=== PATIENT | female | born 1985 | race Two or more races ===

== ENCOUNTER 2023-06-05 10:10 | Emergency (ER) | payer OTHER ==
[~2023-06-05] VITALS: Ht 165.1 cm; Wt 64.9 kg
[2023-06-05 11:49] LABS: BASOPHILS % (AUTO) 0.2 % (0.0-2.0); EOSINOPHILS % (AUTO) 0.3 % (0.0-6.0); HEMATOCRIT 36 % (33-45); HEMOGLOBIN 11.9 g/dL (11.5-14.8); LYMPHOCYTES # (AUTO) 1.5 K/uL (0.8-4.8); LYMPHOCYTES % (AUTO) 13.9 % (20.0-44.0); MEAN CORPUSCULAR HEMOGLOBIN 28 PG (26.0-33.0); MEAN CORPUSCULAR HGB CONC 33 g/dl (31.0-36.0); MEAN CORPUSCULAR VOLUME 85 fL (82-100); MONOCYTES # (AUTO) 0.6 K/uL (0.1-1.30); MONOCYTES % (AUTO) 5.1 % (2.0-12.0); NEUTROPHILS # (AUTO) 8.9 K/uL (1.8-8.9); NEUTROPHILS % (AUTO) 80.5 % (43.0-81.0); PLATELET COUNT (AUTO) 292 K/uL (150-450); RED CELL DISTRIBUTION WIDTH 15.6 % (11.5-15.0); WHITE BLOOD COUNT (AUTO) 11.1 K/uL (4.3-11.0)
[2023-06-05 11:57] LABS: CALCIUM, SERUM 8.9 mg/dL (8.5-10.1); CREATININE 0.8 mg/dL (0.6-1.3); POTASSIUM 4.3 mmol/L (3.5-5.1)
[2023-06-05 12:03] LABS: ALBUMIN 3.7 g/dL (3.4-5.0); BILIRUBIN,DIRECT 0.1 mg/dL (0.0-0.2); BILIRUBIN,TOTAL 0.3 mg/dL (0.2-1.0); TOTAL PROTEIN, SERUM 7.2 g/dL (6.4-8.2)
[2023-06-05 12:15] LABS: APPEARANCE,URINE CLEAR (CLEAR); BILIRUBIN,URINE NEGATIVE (NEGATIVE); BLOOD, URINE TRACE-INTA Ery/uL (NEGATIVE); COLOR,URINE YELLOW (YELLOW); KETONES,URINE NEGATIVE (NEGATIVE); LEUKOCYTE ESTERASE ,URINE 1+ (NEGATIVE); NITRITE, URINE NEGATIVE (NEGATIVE); PH,URINE 6.5 (5.0-8.0); PROTEIN,URINE NEGATIVE (NEGATIVE); UGLUCOSE NEGATIVE (NEGATIVE); UROBILINOGEN,URINE 0.2 EU/dL (0.2)
[2023-06-05] MEDS ORDERED: NITR100C PO (13:24)
[2023-06-05 14:20] VITALS: BP 121/61; TEMP 98.2; O2SAT 100
[2023-06-05 14:25] LABS: ADD URINE CULTURE YES; BACTERIA,URINE Many /HPF (None Seen); RBC,URINE 0-2 /HPF (0-2); SQUAMOUS EPITHELIAL CELL,UR Many /HPF (None Seen)
[2023-06-05 14:31] LABS: PREGNANCY TEST URINE QUAL NEGATIVE (NEGATIVE)
== END 2023-06-05 14:20 | disposition home or self-care (01) ==
LOC: ER 10:29
DX: K80.20 Calculus of gallbladder without cholecystitis without obstruction (principal); N39.0 Urinary tract infection, site not specified; R10.30 Lower abdominal pain, unspecified
CPT/HCPCS: 36415; 80048-TC; 80076-TC; 81001; 83690-TC; 84703-TC; 85025-TC; 87086-TC

== ENCOUNTER 2024-02-17 14:14 | Emergency (ER) | payer OTHER ==
[~2024-02-17] VITALS: Ht 167.6 cm; Wt 56.7 kg
[~2024-02-17 14:14] MED LIST: NITR100C PO
[2024-02-17] MEDS ORDERED: predniSONE 20 MG TABLET ONE (14:34)
[2024-02-17] MEDS ORDERED: ALBUTEROL FS 2.5 MG/3 ML VIAL.NEB ONE (14:42)
[2024-02-17] MEDS ORDERED: IPRATROPIUM NEB FS 0.5 MG/2.5 ML AMPUL.NEB ONE (14:42)
[2024-02-17 14:46] VITALS: O2SAT 96
[2024-02-17] MEDS: ALBUTEROL FS 2.5 MG/3 ML VIAL.NEB NEB ONE (14:46)
[2024-02-17] MEDS: IPRATROPIUM NEB FS 0.5 MG/2.5 ML AMPUL.NEB NEB ONE (14:46)
[2024-02-17] MEDS: predniSONE 20 MG TABLET PO ONE (14:56)
[2024-02-17 15:04] VITALS: O2SAT 100
[2024-02-17] MEDS ORDERED: GUAI1TBM19 PO (16:02)
[2024-02-17] MEDS ORDERED: FLUT100D INH (16:02)
[2024-02-17] MEDS ORDERED: PRED50TA PO (16:02)
[2024-02-17] MEDS ORDERED: ALBU18HF2 INH (16:02)
[2024-02-17 16:05] VITALS: BP 112/67; TEMP 98.2; O2SAT 100
== END 2024-02-17 16:05 | disposition home or self-care (01) ==
LOC: ER 14:16
DX: J45.909 Unspecified asthma, uncomplicated (principal); J06.9 Acute upper respiratory infection, unspecified; Z79.51 Long term (current) use of inhaled steroids; Z79.899 Other long term (current) drug therapy; Z20.822 Contact with and (suspected) exposure to COVID-19; Z88.0 Allergy status to penicillin; Z91.040 Latex allergy status
CPT/HCPCS: 99285; 71045; 87426; 93005; 87804 ×2; 94799; 94640; J7512

== ENCOUNTER 2024-03-03 17:33 | Emergency (ER) | payer OTHER ==
[~2024-03-03] VITALS: Ht 167.6 cm; Wt 56.7 kg
[~2024-03-03 17:33] MED LIST changes: +ALBU18HF2 INH; +FLUT100D INH; +GUAI1TBM19 PO; +PRED50TA PO
[2024-03-03] MEDS ORDERED: IBUP-1955 PO (18:15)
[2024-03-03] MEDS ORDERED: CYCL5TAB PO (18:15)
[2024-03-03] MEDS ORDERED: ACET-2605 PO (18:15)
[2024-03-03] MEDS ORDERED: IBUPROFEN 600 MG TABLET ONE (18:19)
[2024-03-03] MEDS: IBUPROFEN 600 MG TABLET PO ONE (18:20)
[2024-03-03] MEDS ORDERED: ACETAMINOPHEN ES 500 MG TABLET ONE (18:20)
[2024-03-03] MEDS: ACETAMINOPHEN ES 500 MG TABLET PO ONE (18:21)
[2024-03-03 18:39] VITALS: BP 137/71; TEMP 98.7; O2SAT 100
== END 2024-03-03 18:40 | disposition home or self-care (01) ==
LOC: ER 17:33
DX: S09.8XXA Other specified injuries of head, initial encounter (principal); M54.2 Cervicalgia; J45.909 Unspecified asthma, uncomplicated; Z88.0 Allergy status to penicillin; Z91.040 Latex allergy status; W20.8XXA Other cause of strike by thrown, projected or falling object, initial encounter; Y93.89 Activity, other specified; Y92.89 Other specified places as the place of occurrence of the external cause; Y99.0 Civilian activity done for income or pay

== ENCOUNTER 2024-03-07 09:17 | Emergency (ER) | payer OTHER ==
[~2024-03-07] VITALS: Ht 167.6 cm; Wt 56.7 kg
[~2024-03-07 09:17] MED LIST changes: +ACET-2605 PO; +CYCL5TAB PO; +IBUP-1955 PO
[2024-03-07 09:32] VITALS: BP 127/72; TEMP 98.8
[2024-03-07] MEDS ORDERED: BACL5TAB PO (09:46)
[2024-03-07] MEDS ORDERED: KETO10TA2 PO (09:46)
[2024-03-07 09:52] VITALS: O2SAT 100
== END 2024-03-07 09:53 | disposition home or self-care (01) ==
LOC: ER 09:19
DX: S16.1XXA Strain of muscle, fascia and tendon at neck level, initial encounter (principal); F07.81 Postconcussional syndrome; Z79.51 Long term (current) use of inhaled steroids; Z79.1 Long term (current) use of non-steroidal anti-inflammatories (NSAID); Z79.899 Other long term (current) drug therapy; Z88.0 Allergy status to penicillin; Z91.040 Latex allergy status; X58.XXXA Exposure to other specified factors, initial encounter; Y93.89 Activity, other specified; Y92.89 Other specified places as the place of occurrence of the external cause; Y99.8 Other external cause status

== ENCOUNTER 2024-04-09 12:45 | Emergency (ER) | payer OTHER ==
[~2024-04-09] VITALS: Ht 167.6 cm; Wt 56.7 kg
[~2024-04-09 12:45] MED LIST changes: +BACL5TAB PO; +KETO10TA2 PO
--- NOTE | 2024-04-09 13:00 | NUR ---
The patient is presented to ER for c/o chest tightness and light headedness while doing chest exercise at physical. C/O non-radiating chest tightness 2/10. Attached to the monitor.
--- NOTE | 2024-04-09 13:12 | NUR ---
EKG obtained at 1301.
--- NOTE | 2024-04-09 13:50 | NUR ---
Patient discharged to home in stable condition. Written and verbal after care instructions given. Patient verbalizes understanding of instruction.
[2024-04-09 13:51] VITALS: BP 116/57; TEMP 97.8; O2SAT 99
== END 2024-04-09 13:51 | disposition home or self-care (01) ==
LOC: ER 12:47
DX: R06.02 Shortness of breath (principal); R07.89 Other chest pain; J45.909 Unspecified asthma, uncomplicated; Z86.59 Personal history of other mental and behavioral disorders; Z88.0 Allergy status to penicillin; Z91.040 Latex allergy status
CPT/HCPCS: 71045-TC

== ENCOUNTER 2024-05-31 16:54 | Emergency (ER) | payer OTHER ==
[~2024-05-31] VITALS: Ht 170.2 cm; Wt 52.2 kg
[2024-05-31 17:39] LABS: APPEARANCE,URINE Clear (CLEAR); BILIRUBIN,URINE Negative (NEGATIVE); BLOOD, URINE Trace-intact Ery/uL (NEGATIVE); COLOR,URINE YELLOW (YELLOW); KETONES,URINE Negative (NEGATIVE); LEUKOCYTE ESTERASE ,URINE Trace (NEGATIVE); NITRITE, URINE Negative (NEGATIVE); PH,URINE 5.5 (5.0-8.0); PROTEIN,URINE Negative (NEGATIVE); UGLUCOSE Negative (NEGATIVE); UROBILINOGEN,URINE 0.2 EU/dL (0.2)
[2024-05-31 17:43] LABS: PREGNANCY TEST URINE QUAL NEGATIVE (NEGATIVE)
[2024-05-31] MEDS ORDERED: ACETAMINOPHEN ES 500 MG TABLET ONE (17:44)
[2024-05-31 17:52] LABS: BASOPHILS % (AUTO) 0.7 % (0.0-2.0); EOSINOPHILS # (AUTO) 0.1 K/uL (0.0-0.7); EOSINOPHILS % (AUTO) 1.5 % (0.0-6.0); HEMATOCRIT 38 % (33-45); HEMOGLOBIN 12.2 g/dL (11.5-14.8); LYMPHOCYTES # (AUTO) 2.1 K/uL (0.8-4.8); LYMPHOCYTES % (AUTO) 29.3 % (20.0-44.0); MEAN CORPUSCULAR HEMOGLOBIN 29 PG (26.0-33.0); MEAN CORPUSCULAR HGB CONC 33 g/dl (31.0-36.0); MEAN CORPUSCULAR VOLUME 88 fL (82-100); MONOCYTES # (AUTO) 0.6 K/uL (0.1-1.30); MONOCYTES % (AUTO) 7.9 % (2.0-12.0); NEUTROPHILS # (AUTO) 4.3 K/uL (1.8-8.9); NEUTROPHILS % (AUTO) 60.6 % (43.0-81.0); PLATELET COUNT (AUTO) 260 K/uL (150-450); RED BLOOD CELL COUNT(AUTO) 4.27 MIL/uL (4.0-5.2); RED CELL DISTRIBUTION WIDTH 15.2 % (11.5-15.0); WHITE BLOOD COUNT (AUTO) 7.1 K/uL (4.3-11.0)
[2024-05-31] MEDS: ACETAMINOPHEN ES 500 MG TABLET PO ONE (17:56)
[2024-05-31] MEDS: IV NS 0.9% 1,000 ML BAG IV ONE (17:56)
[2024-05-31 17:58] LABS: CALCIUM, SERUM 8.3 mg/dL (8.5-10.1); CREATININE 0.9 mg/dL (0.6-1.3); POTASSIUM 3.5 mmol/L (3.5-5.1)
[2024-05-31 18:07] LABS: ADD URINE CULTURE YES; BACTERIA,URINE Moderate /HPF (None Seen)
[2024-05-31 18:08] LABS: SQUAMOUS EPITHELIAL CELL,UR Moderate /HPF (None Seen)
[2024-05-31 18:10] LABS: ALBUMIN 3.6 g/dL (3.4-5.0); BILIRUBIN,DIRECT 0.1 mg/dL (0.0-0.2); BILIRUBIN,TOTAL 0.2 mg/dL (0.2-1.0); TOTAL PROTEIN, SERUM 6.7 g/dL (6.4-8.2)
[2024-05-31] MEDS ORDERED: ACYC400T19 PO (18:10)
[2024-05-31 18:47] VITALS: BP 116/57; TEMP 98; O2SAT 99
== END 2024-05-31 18:48 | disposition home or self-care (01) ==
LOC: ER 16:58
DX: N94.89 Other specified conditions associated with female genital organs and menstrual cycle (principal); B00.89 Other herpesviral infection; J45.909 Unspecified asthma, uncomplicated; Z79.51 Long term (current) use of inhaled steroids; Z79.52 Long term (current) use of systemic steroids; Z88.0 Allergy status to penicillin; Z88.8 Allergy status to other drugs, medicaments and biological substances; Z91.041 Radiographic dye allergy status; Z20.2 Contact with and (suspected) exposure to infections with a predominantly sexual mode of transmission
CPT/HCPCS: 99284; 76700; 96360; 76856; 85025; 80048; 80076; 84703; 81001; 36415; 84702; J7030

== ENCOUNTER 2024-09-17 10:47 | Emergency (ER) | payer OTHER ==
[~2024-09-17] VITALS: Ht 167.6 cm; Wt 54.4 kg
[~2024-09-17 10:47] MED LIST changes: +ACYC400T19 PO
[2024-09-17 10:59] VITALS: TEMP 99
[2024-09-17] MEDS ORDERED: BENZONATATE 100 MG CAPSULE PO ONE (11:12)
[2024-09-17] MEDS ORDERED: PSEUDOEPHEDRINE HCL 30 MG TABLET ONE ×2 (11:12→11:14)
[2024-09-17] MEDS: BENZONATATE 100 MG CAPSULE PO PRN (11:17)
[2024-09-17] MEDS: PSEUDOEPHEDRINE HCL 30 MG TABLET PO ONE (11:17)
[2024-09-17] MEDS ORDERED: ALBUTEROL FS 2.5 MG/3 ML VIAL.NEB ONE (11:25)
[2024-09-17] MEDS ORDERED: IPRATROPIUM NEB FS 0.5 MG/2.5 ML AMPUL.NEB ONE (11:25)
[2024-09-17 11:29] VITALS: O2SAT 99
[2024-09-17] MEDS: IPRATROPIUM NEB FS 0.5 MG/2.5 ML AMPUL.NEB NEB ONE (11:29)
[2024-09-17] MEDS: ALBUTEROL FS 2.5 MG/3 ML VIAL.NEB NEB ONE (11:29)
[2024-09-17 11:45] VITALS: O2SAT 100
[2024-09-17] MEDS ORDERED: ALBU18HF2 INH (12:19)
[2024-09-17 13:00] VITALS: BP 110/70; O2SAT 100
== END 2024-09-17 12:45 | disposition home or self-care (01) ==
LOC: ER 10:55
DX: R05.9 Cough, unspecified (principal); R09.81 Nasal congestion; R06.02 Shortness of breath; J45.909 Unspecified asthma, uncomplicated; Z79.51 Long term (current) use of inhaled steroids; Z79.52 Long term (current) use of systemic steroids; Z79.624 Long term (current) use of inhibitors of nucleotide synthesis; Z88.0 Allergy status to penicillin; Z88.8 Allergy status to other drugs, medicaments and biological substances; Z91.041 Radiographic dye allergy status; Z20.822 Contact with and (suspected) exposure to COVID-19
CPT/HCPCS: 71045-TC